=== PATIENT | female | born 1990 | race Asian ===

== ENCOUNTER 2020-04-06 21:55 | Observation (INO) | payer OTHER ==
[~2020-04-06] VITALS: Ht 154.9 cm; Wt 59.0 kg
[2020-04-06 22:00] VITALS: BP 108/61
[2020-04-06] MEDS ORDERED: PENICILLIN G POTASSIUM IV 5 MU in D5W MINI-BAG PLUS 100 ML IV STA (22:37)
[2020-04-06] MEDS ORDERED: MAGNESIUM *L&D* 4GM/100ML BAG (40MG/ML) IV ONE (22:45)
[2020-04-06] MEDS ORDERED: LACTATED RINGER'S 1000 ML IV ONE (22:45)
[2020-04-06] MEDS ORDERED: BETAMETHASONE SOLUSPAN 6MG/ML 5ML VIAL (J0702 PER 3MG) As Ordered ONE (22:55)
[2020-04-06] MEDS ORDERED: MAGNESIUM *L&D* 4GM/100ML BAG (40MG/ML) As Ordered ONE (22:56)
[2020-04-06 23:00] VITALS: BP 102/62
[2020-04-06 23:10] LABS: HEMATOCRIT 34.5 % (36.0-47.0); HEMOGLOBIN 11.9 g/dl (12.0-15.5); MEAN CORPUSCULAR HEMOGLOBIN 36.4 pg (27.0-33.0); MEAN CORPUSCULAR HGB CONC 34.5 g/dl (32.0-36.5); MEAN CORPUSCULAR VOLUME 105.5 fl (80.0-96.0); PLATELET COUNT, AUTOMATED 224 10^3/uL (150-450); RED BLOOD COUNT 3.27 10^6/uL (4.00-5.40); WHITE BLOOD COUNT 11.9 10^3/uL (4.0-10.0)
[2020-04-06] MEDS: BETAMETHASONE SOLUSPAN 6MG/ML 5ML VIAL (J0702 PER 3MG) IM SCH (23:10)
[2020-04-06] MEDS: MAG Sulf (OBGYN) 20GM/500ML 20,000 MG in IV 1 EA IV SCH (23:20)
[2020-04-06 23:21] LABS: APPEARANCE, URINE CLEAR (CLEAR); BACTERIA, URINE AUTO NEGATIVE (NEGATIVE); BILIRUBIN, URINE AUTO NEGATIVE (NEGATIVE); BLOOD, URINE BLOOD NEGATIVE (NEGATIVE); COLOR, URINE STRAW (YELLOW); GLUCOSE, URINE (UA) AUTO NEGATIVE (NEGATIVE); KETONE, URINE AUTO NEGATIVE (NEGATIVE); LEUKOCYTE ESTERASE, URINE AUTO 1+ (NEGATIVE); NITRITE, URINE AUTO NEGATIVE (NEGATIVE); PROTEIN, URINE AUTO NEGATIVE (NEGATIVE); RBC, URINE AUTO 0 /HPF (0-3); SPECIFIC GRAVITY URINE AUTO 1.004 (1.002-1.035); SQUAMOUS EPITHELIAL CELL UR AU 1 /HPF (0-6); UROBILINOGEN, URINE AUTO 0.2 mg/dL (0.0-2.0); WBC, URINE AUTO 5 /HPF (0-3)
[2020-04-06 23:30] VITALS: BP 111/70
[2020-04-07] VITALS (61 sets, daily range): BP systolic 68–122; BP diastolic 45–82
[2020-04-07] MEDS: ACETAMINOPHEN 500 MG TAB PO PRN (01:10)
[2020-04-07] MEDS: LR 1,000 ML IV SCH ×3 (03:04→13:30)
[2020-04-07] MEDS: PENICILLIN G POTASSIUM IV 2.5 MU in IV 1 EA IV SCH ×5 (03:43→19:25)
[2020-04-07 06:39] LABS: ALBUMIN 2.7 GM/DL (3.2-5.2); ALT/SGPT 13 U/L (12-78); BILIRUBIN,DIRECT < 0.1 MG/DL (0.0-0.2); BILIRUBIN,TOTAL 0.2 MG/DL (0.2-1.0); BLOOD UREA NITROGEN 6 MG/DL (7-18); CALCIUM LEVEL 7.6 MG/DL (8.5-10.1); CARBON DIOXIDE LEVEL 21 MEQ/L (21-32); CHLORIDE LEVEL 109 MEQ/L (98-107); CREATININE FOR GFR 0.53 MG/DL (0.55-1.30); GLOMERULAR FILTRATION RATE > 60.0 (>60); GLUCOSE, FASTING 150 MG/DL (70-100); LDH LACTATE DEHYDROGENASE 164 U/L (84-246); MAGNESIUM LEVEL 2.8 MG/DL (1.8-2.4); SODIUM LEVEL 136 MEQ/L (136-145); TOTAL PROTEIN 6.4 GM/DL (6.4-8.2); URIC ACID 3.4 MG/DL (2.6-6.0)
--- NOTE | 2020-04-07 07:43 | REPVR ---
PROCEDURE INFORMATION: Exam: US After First Trimester, Transabdominal Exam date and time: 04/07/2020 7:01 AM Age: 29 years old Clinical indication: Other: labor; ; Additional info: bpp cervical length weight placental evaluation abru TECHNIQUE: Imaging protocol: Real-time transabdominal obstetrical ultrasound of the maternal pelvis and a second or third trimester with image documentation. COMPARISON: No relevant prior studies available. FINDINGS: There is a single intrauterine gestation in cephalic presentation. No anatomic abnormality is demonstrated to involve the lateral ventricles, stomach, kidneys or urinary bladder. Anatomic detail was not further assessed. heart rate: 144 bpm Umbilical S/D ratio: 2.2 The following anatomic measurements were obtained: BPD 8.9 cm (36 weeks 1 day(s)) head circumference 31.6 cm (35 weeks 4 day(s)) abdomen circumference 30.6 cm (34 weeks 5 day(s)) femur length 6.3 cm (32 weeks 4 day(s)) head/abdomen circumference ratio 1.03 (range 0.96 - 1.11) Estimated weight 2390 g (56 percentile) Estimated gestational age based on this ultrasound 34 weeks 6 day(s) (Estimated date of confinement 05/13/20) The placenta is anterior, grade 1. There is no demonstrated placenta previa or abruption. The cervix is closed and measures 4.1 cm in length. The amniotic fluid index measures 17.5 cm. No abnormality is demonstrated in the maternal pelvis. IMPRESSION: 1. Single viable intrauterine gestation with estimated gestational age 34 weeks 6 days, based on measurements from this ultrasound. 2. Anterior, grade 1 placenta without demonstrated previa or abruption. 3. Cervix closed, 4.1 cm in length. PROCEDURE INFORMATION: Exam: US Biophysical Profile Without Non-Stress Test Exam date and time: 04/07/2020 7:01 AM Age: 29 years old Clinical indication: Other: labor; ; Additional info: bpp cervical length weight placental evaluation abru TECHNIQUE: Imaging protocol: US biophysical profile without non-stress testing. COMPARISON: No relevant prior studies available. FINDINGS: BIOPHYSICAL PROFILE: Breathin/2 Gross body movements: 2/2 tone: 2/2 Qualitative amniotic fluid: 2/2 Biophysical Profile Score: 8/8 IMPRESSION: Biophysical profile score is 8 out of 8. Electronically signed by: Jose Luis Sommers On 04/07/2020 07:42:53 AM
[2020-04-07 09:37] LABS: CREATININE,RANDOM URINE 25.7 MG/DL; TOTAL PROTEIN,RANDOM URINE 14.8 MG/DL (0.0-12.0)
[2020-04-07 18:35] LABS: HEMATOCRIT 30.6 % (36.0-47.0); HEMOGLOBIN 10.4 g/dl (12.0-15.5); MEAN CORPUSCULAR HEMOGLOBIN 36.5 pg (27.0-33.0); MEAN CORPUSCULAR VOLUME 107.4 fl (80.0-96.0); PLATELET COUNT, AUTOMATED 205 10^3/uL (150-450); RED BLOOD COUNT 2.85 10^6/uL (4.00-5.40); WHITE BLOOD COUNT 11.8 10^3/uL (4.0-10.0)
[2020-04-07 18:40] LABS: BLOOD UREA NITROGEN 8 MG/DL (7-18); CALCIUM LEVEL 7.6 MG/DL (8.5-10.1); CARBON DIOXIDE LEVEL 22 MEQ/L (21-32); CHLORIDE LEVEL 108 MEQ/L (98-107); CREATININE FOR GFR 0.43 MG/DL (0.55-1.30); GLOMERULAR FILTRATION RATE > 60.0 (>60); GLUCOSE, FASTING 117 MG/DL (70-100); MAGNESIUM LEVEL 4.1 MG/DL (1.8-2.4); POTASSIUM SERUM 3.8 MEQ/L (3.5-5.1); SODIUM LEVEL 137 MEQ/L (136-145)
[2020-04-07] MEDS: MAG Sulf (OBGYN) 20GM/500ML 20,000 MG in IV 1 EA IV SCH (23:22)
[2020-04-07] MEDS: BETAMETHASONE SOLUSPAN 6MG/ML 5ML VIAL (J0702 PER 3MG) IM SCH (23:23)
[2020-04-08] MEDS: ACETAMINOPHEN 500 MG TAB PO PRN (00:10)
--- NOTE | 2020-04-08 14:09 | HPE ---
DATE OF ADMISSION: 04/06/2020 28-year-old, 3, para 1, abortus 1, last menstrual period (LMP) 08/14/2019, estimated date of confinement (EDC) 05/20/2020 at 34 weeks of gestation with a history of contractions. She speaks Mandarin only and we are attempting to get a edge cutter. She has no vaginal loss and no vaginal bleeding. RISK FACTORS: She had a short interval . PAST HISTORY: 12/12/2018 at 40 and 3, spontaneous vaginal delivery 7 pounds, 8 ounces. LABORATORIES: O positive, HIV negative, hepatitis negative, RPR negative, Varicella immune, urine was negative, gonorrhea and chlamydia were negative, 1- hour glucose 123. Urine is 1.005, pH of 8. Blood pressure 108/61, respirations 18, pulse 100, temperature is 97.9. On examination, symphysis fundus height is 34 cm, vertex presenting, category 1 strip with occasional tightening which apparently the patient feels is moderate. Examination reveals a cervix which is posterior, 2 cm, almost 3 cm, soft, thick, -3 station, no vaginal bleeding or loss. Category 1 strip. Group B Streptococcus (GBS) culture was done. Our plan of management is to hydrate her, do magnesium sulfate for neurologic prophylaxis, penicillin for GBS prophylaxis, betamethasone for lung enhancement, and notify neonatology. At the present time, it is safe to proceed. Patient is not in good active labor. Anticipate shutting her down and hopefully discharge undelivered. Will reevaluate in several hours time. DEEDEED
--- NOTE | 2020-04-08 17:11 | IPN ---
DATE: 04/07/2020 HISTORY: This lady is a 28-year-old 3, para 1, who is at 34 weeks, came in with contractions, speaks no Czech, Mandrin only and no loss of fluid or vaginal discharge. Because of being 34 weeks and jay she was placed on mag sulfate for neuro prophylaxis, penicillin for GBS unknown status, betamethasone for lung maturity. Her initial blood pressure when she came in was 108/61. In viewing her blood pressures over the course of the nighttime her blood pressures ranged from 81/53 to 91/62 to 71/46. She functioned pretty well, was asymptomatic with her low blood pressures. She is diuresing well. Lowest output was 25 mL per hour and she is up to 125-200 mL per hour. She is in fluid balance. On re-evaluation of the patient she is having contractions that are irregular, erratic with a category 1 strip. She had 1 deceleration with a contraction, but it was variable. Her reflexes are +1. She has no edema, no clonus. She denies any right upper quadrant pain, visual disturbances. She is most concerned about the fact that she has a contraction that causes her pain. Cervical length on examination was 2 cm very posterior and the presenting part was high. Over the course of the night she had multiple boluses for her low blood pressure and this was ineffective. We did stop the mag sulfate as we thought maybe that was an issue, but she still had these low blood pressures. In reviewing her chart her blood pressures in clinic were 90s/60s and this may be just the physiologic normal for her. PLAN: Our plan of management is to review basic metabolic profile. We ordered a BPP with cervical length, rule out abruption placental. The working diagnosis is possibly atypical HELLP syndrome which we will be able to rule out with her profile. At the present time patient is stable, category 1 strip, few contractions, blood pressure at this time is 93/59, respirations 17, pulse 81 and she is afebrile. We spent 30 minutes in evaluation and examination. DESTIN
--- NOTE | 2020-04-08 17:13 | IPN ---
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 She has no vaginal bleeding or discharge. She was prophylactically put on mag sulfate, betamethasone, GBS prophylaxis coverage. She was still having intermittent contractions every 2, 5 to 7 minutes, irregular with a category 1 strip. During her stay on mag apparently her blood pressures seemed to have been on the low range level, she is asymptomatic. We were uncertain as to the etiology behind her low blood pressures so we had discontinued the mag sulfate for now, maintained the betamethasone and the antibiotics prophylactically. ASSESSMENT AND PLAN: In reviewing her chart from the office she had persistently low blood pressures and we elected to go with the fact that she has persistent low blood pressures; however, for completeness we did a preeclamptic profile which was negative, a complete metabolic profile which was negative. We did a protein:creatinine ratio which is still pending. In view we bolused her several times with fluid and seemed to be unresponsive to her blood pressures. In reviewing them here her latest blood pressure was 93/59, her lowest blood pressure was 71/48 again being asymptomatic. She is diuresing well. For completeness we did an ultrasound with biophysical profile, PRECIOUS, cervical length and appreciation for possible concealed abruption. The ultrasound was a biophysical profile of 8/8, the ST ratio was normal, vertex presenting. The estimated weight was 2390 grams at the 56th percentile for 34 weeks and 6 days. Placenta was anterior grade 1, no previa. Cervical length 4.1, no funneling. PRECIOUS was 17.5. Therefore we decided to start the mag sulfate for neuro prophylaxis, complete the 24 hour change after which it will be discontinued and if her cervix is unchanged and there is no further issues with blood pressure the plan is to discharge her after her second dose of betamethasone tomorrow morning at 06:00. Patient through translation expressed understanding. We had a 30 minute discussion. DESTIN
--- NOTE | 2020-04-23 12:39 | DSES ---
DATE OF ADMISSION: 04/06/2020 DATE OF DISCHARGE: 04/08/2020 BRIEF HISTORY: This lady is a 29-year-old 3 para 1 who is at 34 and 2 weeks of gestation; was admitted on 04/06/2020 with contractions. Speaks Mandarin only; requires translation. She had no vaginal bleeding, loss or discharge. A monitor strip showed that she was having some irregular contractions throughout and because she was 34 weeks of gestation, she required pre-term evaluation and treatment. Her risk factors are she had a short interval . She had her last baby 12/12/2018 at 40 and 3, spontaneous vaginal delivery, 7 pound 8 ounces. LABS ON ADMISSION: O-positive, HIV negative, Hep negative, R-DELORIS negative. Urine was negative. Gonorrhea and Chlamydia were negative. One-hour glucose was 123. On examination, she was about 2 cm, posterior, thick, high, -3 station. No vaginal bleeding or loss. She had a category 1 strip. Initially, when she came in, she was hydrated, neuroprophylaxis with magnesium sulfate, penicillin for GBS unknown status, betamethasone q. 24 for lung maturity and consultation with neonatology. Over her course of stay, she had some hypotensive episodes which were asymptomatic and she had low running blood pressures of 86/50, 97/62 and at one time she had an 80/45 and 76/49 but she was asymptomatic. She has been up to 104/62. In reviewing her records, she was always running low blood pressures, 90/40, 90/50, and so we felt that this was probably running her normal blood pressures; however, we investigated and evaluated her and on initial examination her hemoglobin was 11.9, hematocrit 34.5 and platelets were 224. A followup evaluation 24 hours later: Hemoglobin was 10.4, hematocrit 30.6 and platelets were 205. When reviewing her chemistry, her anion gap was 6, which is low; creatinine and BUN were normal, liver function was normal. We reevaluated 24 hours later and the numbers did not change. Her uric acid was always at 3.4. We did a urine which was clear, 1.004, pH 7, was negative. We did a protein/creatinine ratio which was 0.57. We did a biophysical profile which was 8/8. anatomy was normal. Estimated weight was 2390 grams which was the 56th percentile for weight at 34 weeks and 2 days. It was vertex presenting. Her cervix was 4.1 cm long, no funneling. Placenta/SD ratio was normal at 2.2. heart rate was 144 beats per minute; was vertex presenting. She completed her betamethasone, completed her neuroprophylaxis and her GBS prophylaxis at 0500 on 04/08/2020. She has no further contractions, no vaginal discharge or bleeding and patient was discharged to follow up in the office on 04/22/2020. Translation was provided by her , Mandarin speaking only. The patient expressed understanding of the plan of care and patient was discharged undelivered to follow up in the office. In summary, I have a 34-weeker with contractions; evaluation indicating that she was neurocomplete, GBS prophylaxis and steroid complete. Followup precautions, pelvic rest was ordered. Both the patient and certified nurse aide expressed understanding of the plan of care. She was discharged undelivered. [facility]
== END 2020-04-08 08:43 | disposition home or self-care (01) ==
LOC: M LDO 21:55 → M OBS 21:56 → M LDO 04-08 08:43
PROVIDERS: ADMIT Obstetrics & Gynecology; ATTEND Obstetrics & Gynecology
DX: O60.03 Preterm labor without delivery, third trimester (principal); Z3A.34 34 weeks gestation of pregnancy
CPT/HCPCS: 59025; 76811; 76819; 76820; 80048; 80053; 81001; 82247; 82248; 82565; 82570; 83615; 83735; 84156; 84450; 84460; 84550; 85027; 86780; 87081; 87086; 87186; 96365; 96366; 96367; 96372; 96374; 96375; J0702; J3475

== ENCOUNTER 2020-05-18 01:43 | Outpatient (CLI) | payer OTHER ==
[~2020-05-18] VITALS: Ht 152.4 cm; Wt 62.1 kg
[2020-05-18] MEDS ORDERED: VALT500T PO (03:16)
[2020-05-18] MEDS ORDERED: PRENTAB9 PO (03:16)
[2020-05-18 04:24] VITALS: BP 101/59
--- NOTE | 2020-05-18 05:06 | HPEPDOC ---
Obstetrical History & Physical General Date of Admission Primary Care Physician: Kendall Velasquez MD History of Present Illness seen in triage with complaints of contractions no vaginal loss no discharge contractions q 10 minutes apart. Chief Complaint: Contractions, term Information Provided By: Patient Age: 28 : 3 Term: 1 Abortions: 1 Livin Care Care: Good Care Dating Final EDC: May 20, 2020 Final EDC by: 1st trimester (US) LMP: Aug 14, 2019 Weeks + Days: 9 Estimated Date of Confinement: May 20, 2020 EGA at Admission: 39 (6 days) Antepartum Course Diagnos(e)s 39 .6 weeks early labor Past Medical History Past Obstetrical History : Past Obstetrical History: Multigravida Date of Delivery: December 12, 2018 Type of Delivery: Spontaneous Vaginal Del. 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 Past Medical History Surgical History: Denies/None Family History Significant Family History: No pertinent family hx Social History Marital Status: Family situation: Spouse/partner home Psychosocial History: No pertinent psych hx * Smoker: non-smoker Alcohol: Denies Drugs: denies Abuse Violence Screening Have you been hit/kicked/slapp: No Have you been sexually assault: No Imunizations Tdap status: current Influenza Status: current Allergies Coded Allergies: No Known Allergies (Unverified , 04/06/20) Medications Scheduled No.137/Iron/Folic Acd ( Vitamin Tablet) 1 Each Tablet, 1 TAB PO DAILY Valacyclovir HCl (Valtrex) 500 Mg Tablet, 1 TAB PO DAILY Physical Examination Physical Examination GENERAL: Alert and oriented times three. BREAST: . ABDOMEN: Gravid and non-tender to touch. FETUS: Is vertex (VTX) by sterile vaginal examination (SVE), fetus is vertex (VTX) by Maciel. HEART RATE: Regular rate and rhythm. LUNGS: Clear to auscultation (CTA). EXTREMITIES: No edema. Vital Signs/I&O Vital Signs Date Time Temp Pulse Resp B/P (MAP) Pulse Ox O2 Delivery O2 Flow Rate FiO2 05/18/20 04:24 97.9 05/18/20 04:24 75 101/59 (73) Pertinent Laboratoy Data Blood Type: O+ HIV: Negative Hepatitis B: Positive Rapid Plasma Reagin: Nonreactive Rubella: Immune Varicella: Immune Chlamydia/Gonorrhea: Negative Group B Streptococcus: Positive Cystic Fibrosis: Negative Anatomy Ultrasound Ultrasound Date: May 18, 2020 Placenta Location: Anterior Normal Anatomy: Yes Other Ultrasounds Information consented vertex cardiac activity noted limb motion observed spontaneous breathing PRECIOUS q 1 7.99CM Q2 3.93. Q3 4.43 CM Steroid Therapy Steroid Therapy: Yes Vaginal Examination Dilation: 3 cm Effacement: 50% Station: -3 Cervical Consistency: Firm Cervical Position: Posterior Presentation: Cephalic presentation Position: Vertex (occiput) Assessment Variability: Moderate Accelerations: Positive Decelerations: None Tocometer Contractions: Yes Frequency: irregular, greater than 9 min/apart Duration: less than 60 seconds Strength: palpated as mild Assessment/Plan Assessment 28 year-old G3 para P1 at 39 WEEKS 6 DAYS weeks by 9 -week ultrasound. 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 TRANSLATION MANDARIN Group B Streptococcus (GBS POSITIVE Labor and Delivery Counseling REVIEWED PROM LABOR BLEEDING WHEN TO CALL PROVIDER HAS APPOINTMENT KOREY DEL CID 05/20/2020 WILL BE BOOKED FOR IOL AT 41 WEEKS, THROUGH PACKING AND WRAPPING SUPERVISOR EXPRESSED UNDERSTANDING Kendall Velasquez MD May 18, 2020 05:01
== END 2020-05-18 04:35 | disposition home or self-care (01) ==
LOC: M LDO 01:43
PROVIDERS: ATTEND Obstetrics & Gynecology
DX: O26.893 Other specified pregnancy related conditions, third trimester (principal); Z3A.39 39 weeks gestation of pregnancy
CPT/HCPCS: 59025; G0378; G0463

== ENCOUNTER 2020-05-27 22:23 | Inpatient (IN) | payer OTHER ==
[~2020-05-27] VITALS: Ht 152.4 cm; Wt 62.5 kg
[~2020-05-27 22:23] MED LIST: PRENTAB9 PO; VALT500T PO
[2020-05-27 22:48] VITALS: BP 107/67
--- NOTE | 2020-05-27 23:59 | HPEPDOC ---
Obstetrical History & Physical General Date of Admission May 27, 2020 at 22:23 History of Present Illness 29yo at 41+0 weeks presents for IOL due to late term gestation. Patient is Mandarin-speaking only. Requests to use spouse as rail crew member. Denies any complaints. 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 (h/o chlamydia) Past Medical History Medical History HSV Surgical History: Denies/None Family History Significant Family History: No pertinent family hx Social History Marital Status: Family situation: Spouse/partner home Psychosocial History: No pertinent psych hx * Smoker: non-smoker Alcohol: Denies Drugs: denies Imunizations Tdap status: current (03/04/2020) Allergies Coded Allergies: No Known Allergies (Unverified , 04/06/20) Medications Scheduled No.137/Iron/Folic Acd ( Vitamin Tablet) 1 Each Tablet, 1 TAB PO DAILY Valacyclovir HCl (Valtrex) 500 Mg Tablet, 1 TAB PO DAILY Physical Examination Physical Examination GENERAL: Alert and oriented times three. ABDOMEN: Gravid and non-tender to touch. FETUS: Is vertex (VTX) by sterile vaginal examination (SVE), fetus is vertex (VTX) by Maciel. CARDS: well-perfused RESP: no exaggerated respiratory effort, no cough EXTREMITIES: No edema. : NEFG, no abnml vaginal discharge, no pooling, no VB. No herpatic lesions seen. SVE /-2 Laboratory Data 24H LABS Laboratory Tests 2 05/27/20 22:27: Serology Scanned Report Hepatitis B Testing Urine Culture: No Growth Pertinent Laboratoy Data Blood Type: O+ RBC Antibody Screen: Negative HIV: Negative Hepatitis B: Negative Rapid Plasma Reagin: Nonreactive Rubella: Immune Varicella: Immune Chlamydia/Gonorrhea: Negative Group B Streptococcus: Positive (04/07/2020) Quad Screen Test: Declined Cystic Fibrosis: Declined Glucose Tolerance Test: 123 Anatomy Ultrasound Ultrasound Date: Jan 10, 2020 Placenta Location: Posterior Normal Anatomy: Yes Placenta Previa: No Vaginal Examination Dilation: 4 cm Effacement: 90% Station: -2 Cervical Consistency: Soft Cervical Position: Middle Presentation: Cephalic presentation Assessment Heart Rate (FHR): 125 Variability: Moderate Accelerations: Positive Decelerations: None Tocometer Contractions: No Multi-drug resistant Organism: No history of MDRO Assessment/Plan Assessment 29yo at 41+0wks presenting for IOL for late term gestation. H/o HSV on valtrex, no lesions seen on exam. GBS positive. SVe 4-5/90/-2. EFW 3200g. Plan Admit and orient. Social Media Marketing Specialist and consent. Diet: clears Group B Streptococcus (GBS) positive - will treat with PCN. Labs and intravenous (IV) per unit protocol. Counseled on Pitocin and induction of labor (IOL). Lactated Ringers (LR): Bolus 500 mL, then at 125 mL/hr. Anticipate normal spontaneous delivery (). C-S as appropriate. YARITZA HATHAWAY DO May 27, 2020 23:59
[2020-05-28] VITALS (14 sets, daily range): BP systolic 75–105; BP diastolic 47–65
[2020-05-28 00:03] LABS: HEMATOCRIT 34.9 % (36.0-47.0); HEMOGLOBIN 11.6 g/dl (12.0-15.5); MEAN CORPUSCULAR HEMOGLOBIN 36.1 pg (27.0-33.0); MEAN CORPUSCULAR HGB CONC 33.2 g/dl (32.0-36.5); MEAN CORPUSCULAR VOLUME 108.7 fl (80.0-96.0); PLATELET COUNT, AUTOMATED 190 10^3/uL (150-450); RED BLOOD COUNT 3.21 10^6/uL (4.00-5.40); WHITE BLOOD COUNT 7.5 10^3/uL (4.0-10.0)
--- NOTE | 2020-05-28 07:59 | IPNPDOC ---
Obstetrical Progress Note Date of Service May 28, 2020 Subjective 29 yo at 41w1d admitted for IOL for postdates . She has been resting comfortably. She denies any current complaints at this time. She has supportive family at the bedside. She desires an epidural for pain control. She has received 2 doses of antibiotics for GBS. Objective Vital Signs Date Time Temp Pulse Resp B/P (MAP) Pulse Ox O2 Delivery O2 Flow Rate FiO2 05/28/20 06:01 97.8 81 84/53 (63) No lesions noted during cervical exam. Assessment Heart Rate (FHR): 130 Variability: Moderate Accelerations: Present Decelerations: None Heart Rate Tracing: Category I Tocometer Contractions: Yes Frequency: other (every 3-4 minutes) Sterile Vaginal Examination Dilation: 6 cm Effacement (%): 50% Station: -2 Postion/Presentation: Cephalic presentation Assessment and Plan Age: 29 : 2 Term: 1 Pre-term: 0 Abortions: 0 Livin EGA at Admission: 41 (+0) Weeks & Days 41w1d Status: Reassuring Group B Streptococcus: Positive Anticipate: Vaginal Delivery Additional Comments Plan for epidural placement and AROM once comfortable with epidural. SHAYLEE NULL CNM May 28, 2020 07:52
[2020-05-28] MEDS ORDERED: FENTANYL 2MCG/ML ROPIVACAINE 0.2% IN 0.9% NACL 100ML IVBAG As Ordered ONE (08:23)
[2020-05-28] MEDS ORDERED: NALOXONE INJ 0.4MG/1ML VIAL (J2310 PER 1MG) IV PRN ×3 (10:45→15:00)
[2020-05-28] MEDS ORDERED: REFRIGERATOR IV KEYS XX PRN (10:45)
[2020-05-28] MEDS ORDERED: EPIDURAL/PCA KEYS XX PRN (10:45)
[2020-05-28] MEDS ORDERED: ONDANSETRON 4MG/2ML VIAL IV PRN ×3 (10:45→15:00)
[2020-05-28] MEDS ORDERED: ePHEDrine SULFATE 25 MG/5 ML(5MG/ML) SYRINGE IV PRN (10:45)
[2020-05-28] MEDS ORDERED: FENTANYL/ROPIVACAINE/NACL BAG 100 ML EPIDURAL SCH (10:45)
[2020-05-28] MEDS ORDERED: diphenhydrAMINE 50MG/ML VIAL (J1200) IV PRN ×2 (10:45→15:00)
[2020-05-28] MEDS ORDERED: EPIDURAL COMMENT XX SCH (10:45)
[2020-05-28] MEDS ORDERED: ceFAZolin 2 GM/D5W 50 ML IV BAG (J0690 PER 500MG) As Ordered ONE (12:37)
[2020-05-28] MEDS ORDERED: BICITRA 30ML SOLN UDC As Ordered ONE (12:37)
[2020-05-28] MEDS ORDERED: MORPHINE PRES-FREE INJ 10 MG/10 ML VIAL (J2274) As Ordered ONE (12:56)
[2020-05-28] MEDS ORDERED: dexameTHASONE 4 MG/ML 1ML VIAL (J1100 PER 1MG) As Ordered ONE (12:56)
[2020-05-28] MEDS ORDERED: KETOROLAC 60MG 2ML VIAL As Ordered ONE (12:56)
[2020-05-28] MEDS ORDERED: PHENYLephrine HCL 500 MCG/5 ML (100MCG/ML) SYRINGE (J2370) As Ordered ONE (12:56)
[2020-05-28] MEDS ORDERED: OXYTOCIN INJ 10 UNITS/ML VIAL (J2590) As Ordered ONE (12:56)
[2020-05-28] MEDS ORDERED: ONDANSETRON 4MG/2ML VIAL As Ordered ONE (12:56)
[2020-05-28 13:00] LABS: CORD GAS ABE V -8.2; CORD GAS HCO3 V 21.1 MEQ/L; CORD GAS PCO2 V 58.1 mmHg; CORD GAS PH V 7.177 UNITS; CORD GAS PO2 V 20.5 mmHg; CORD GAS SBC V 16.7 MEQ/L; CORD GAS TCO2 V 22.8 MEQ/L
[2020-05-28 13:02] LABS: CORD GAS ABE A -8.5; CORD GAS HCO3 A 22.1 MEQ/L; CORD GAS O2 SAT A 39.7 %; CORD GAS PCO2 A 67.9 mmHg; CORD GAS PH A 7.13 UNITS; CORD GAS PO2 A 21.2 mmHg; CORD GAS SBC A 16.5 MEQ/L; CORD GAS TCO2 A 24.2 MEQ/L
[2020-05-28] MEDS ORDERED: ePHEDrine SULFATE 25 MG/5 ML(5MG/ML) SYRINGE As Ordered ONE (13:11)
[2020-05-28] MEDS ORDERED: LR 1,000 ML IV SCH ×2 (14:11→15:00)
[2020-05-28] MEDS ORDERED: DOCUSATE SODIUM 100 MG CAP PO PRN (14:15)
[2020-05-28] MEDS ORDERED: ANUSOL HC CREAM 30GM TOP PRN (14:15)
[2020-05-28] MEDS ORDERED: ACETAMINOPHEN 500 MG TAB PO PRN (14:15)
[2020-05-28] MEDS ORDERED: OXYTOCIN INJ 10 UNITS/ML VIAL (J2590) IV ONE (14:15)
[2020-05-28] MEDS ORDERED: MEASLES,MUMPS,RUBELLA VACCINE INJ (MMR-II) (90707) SC SCH (14:15)
[2020-05-28] MEDS ORDERED: ACETAMINOPHEN TAB 650MG DOSE (2X325MG) PO PRN (14:15)
[2020-05-28] MEDS ORDERED: RHOGAM 300 MCG (1500 IU) INJ (J2790) IM SCH (14:15)
[2020-05-28] MEDS ORDERED: METHYLERGONOVINE MALEATE 0.2 MG TAB PO PRN (14:15)
[2020-05-28] MEDS ORDERED: ACETAMINOPHEN 650 MG SUPP PR PRN (14:15)
[2020-05-28] MEDS ORDERED: OXYTOCIN DRIP 30 UNITS in IV 1 EA IV ONE (14:15)
[2020-05-28] MEDS ORDERED: MOM 30ML SUSPENSION UDC PO PRN (14:15)
--- NOTE | 2020-05-28 14:37 | REP ---
INDICATION: c/s stat no count. COMPARISON: None. TECHNIQUE: Two AP portable views of abdomen and pelvis performed. FINDINGS: A curvilinear radiodensity overlies the midline of the upper abdomen which may be related to a foreign body either in or on the patient. Air is seen scattered throughout the GI tract. Soft tissue density in the pelvis is compatible with enlarged post gravid uterus. IMPRESSION: A curvilinear radiodensity overlies the midline of the upper abdomen which may be related to a foreign body either in or on the patient. <Electronically signed by Juan Hanks > 05/28/20 [id number]
[2020-05-28] MEDS ORDERED: OXYTOCIN 30 UNITS IN 0.9% NaCl 500ML IV BAG (J2590) As Ordered ONE (14:39)
[2020-05-28] MEDS ORDERED: ePHEDrine SULFATE 25 MG/5 ML(5MG/ML) SYRINGE IV SCH (15:00)
[2020-05-28] MEDS ORDERED: NALBUPHINE HCL 10 MG/ML AMP (J2300) IV PRN ×2 (15:00)
[2020-05-28] MEDS ORDERED: METOCLOPRAMIDE INJ 10MG/2ML VIAL (J2765 PER 1) IV PRN (15:00)
[2020-05-28] MEDS ORDERED: fentaNYL 100 MCG/2 ML INJECTION (J3010) IV PRN (15:00)
[2020-05-28] MEDS ORDERED: KETOROLAC 30 MG/ML 1ML VIAL As Ordered ONE (15:19)
[2020-05-28] MEDS: KETOROLAC 30 MG/ML 1ML VIAL IV SCH ×2 (15:34→21:35)
--- NOTE | 2020-05-28 17:22 | REP ---
INDICATION: Foreign body stat US, epidural removed, need comparison. COMPARISON: 05/28/2020 at 2:11 p.m.. TECHNIQUE: AP supine portable view of abdomen and pelvis performed. FINDINGS: Scattered air seen throughout the GI tract in a nonspecific pattern. Enlarged post gravid uterus is seen in the pelvis. The previously noted curvilinear metallic density projecting over the upper abdomen is no longer present. This is consistent removal of an epidural catheter. IMPRESSION: No radiopaque foreign body identified. Previously noted curvilinear density overlying the upper abdomen represented an epidural catheter which has been removed. <Electronically signed by Juan Hanks > 05/28/20 1311
--- NOTE | 2020-05-28 19:39 | ROOPDOC ---
[facility] Report Of Operation Report of Operation DATE OF PROCEDURE: 05/28/20 PREPROCEDURE DIAGNOSES: bradycardia, maternal declined to push failed 1 pull vacuum POSTPROCEDURE DIAGNOSES: SAME AND POP ASYNCLITIC . VAGINAL EVALUATION FOR LACERATIONS PROCEDURE: PRIMARY CS VAGINAL EVALUATION FOR CERVICAL AND VAGINAL TEARS. SURGEON: AYESHA PURVIS DOOR TENDER: CHAKA JACOBSEN ANESTHESIA: EPIDURAL ESTIMATED BLOOD LOSS: Approximately 600 ML COMPLICATIONS: NONE REMARKS: STAT CS VAGINAL EVALUATION PROCEDURE NOTE: PRIMARY CS AND VAGINAL EVALUATIONS FOR LACERATIONS DESCRIPTION OF PROCEDURE: UNDER ADEQUATE ANESTHESIA STAT PREP AND TIME OUT PREPPED AND DRAPED IN SUPINE CONDITION SEQUENTIALS IN PLACE ANTIBIOTICS APPROPRIATE A PFANNENSTIEL INCISION MADE PASSING THROUGH LAYERS HEMOSTASIS SECURED PERITONEUM OPENED MOBIUS PLACED BLADDER WAS FULL AND PROTRUDING DESPITE ATTEMPTS TO REDUCE BLADDER A LOW TRANSVERSE INCISION TO UTERUS CLEAR LIQUOR DELIVERED ON POP POSITION AND ASYNCLITIC LIVE MALE INFANT 9/9 WEIGHT 3490 GRAMS ARTERIAL AND VENOUS PH DONE , BABY HANDED OFF TO NEONATOLOGY. PLACENTA MANUAL REMOVAL UTERUS SWEPT CLEAN UTERUS CONTRACTED DOWN UNDER PITOCIN . LOWER SEGMENT SEWN IN 2 LAYERS EXTRICATING SECOND LAYER . REVIEWED TIGHT UTERUS HEMOSTASIS SECURED EXAMINATION BACK UTERUS NO TARES UTERUS FIRM. MOBIUS REMOVED ABDOMEN CLOSE PERITONEUM THEN FASCIA THEN INTERRUPTED TO SUBCUTANEOUS THEN DEXON TO SKIN. MEPORE DRESSING APPLIED. PATIENT WAS THEN PLACED IN LITHOTOMY POSITION EVALUATION REVEALED VERY SWOLLEN LABIA, ANTERIOR POSTERIOR SANCHES VERY BRUISED AND SWOLLEN LATERAL SANCHES OCCLUDING VAGINAL OPENING EXAMINATION OF CERVIX INTACT REPLACED AHMADI CATHETER THEN DRAINING WELL . EXRAY CALLED PARTIBLE NO INSTRUMENTS IN PATIENT BUT DESCRIPTION OF CURVILINEAR RADIODENSITY IN MIDLINE SEEN , CALLED FOREIGN BODY IN PATIENT. ANESTHESIA RECALLED PULLED EPIDURAL CATHETER REDID EXRAY AND NOTHING SEEN IN PATIENT . INSTRUMENT T AND PAD COUNT CORRECT . PATIENT TAKEN TO RECOVERY. Kendall Velasquez MD May 28, 2020 19:38
[2020-05-28] MEDS: PIPERACILLIN/TAZOBACTAM SOD 2.25 GM in D5W MINI-BAG PLUS 50 ML IV SCH (21:03)
[2020-05-29] MEDS: PERCOCET 5MG/325MG TAB PO PRN ×5 (00:37→22:04)
[2020-05-29 01:53] VITALS: BP 98/54
[2020-05-29] MEDS: KETOROLAC 30 MG/ML 1ML VIAL IV SCH ×2 (03:34→08:41)
[2020-05-29 06:02] VITALS: BP 103/62
[2020-05-29 06:36] LABS: HEMATOCRIT 24.6 % (36.0-47.0); MEAN CORPUSCULAR HEMOGLOBIN 36.9 pg (27.0-33.0); MEAN CORPUSCULAR HGB CONC 33.7 g/dl (32.0-36.5); MEAN CORPUSCULAR VOLUME 109.3 fl (80.0-96.0); PLATELET COUNT, AUTOMATED 146 10^3/uL (150-450); RED BLOOD COUNT 2.25 10^6/uL (4.00-5.40); WHITE BLOOD COUNT 12.8 10^3/uL (4.0-10.0)
[2020-05-29 06:40] LABS: HEMOGLOBIN 8.3 g/dl (12.0-15.5)
[2020-05-29] MEDS: PRENATAL VITAMINS CHEWABLE TABLET PO SCH (08:41)
[2020-05-29] MEDS: PIPERACILLIN/TAZOBACTAM SOD 2.25 GM in D5W MINI-BAG PLUS 50 ML IV SCH ×2 (08:42→19:51)
[2020-05-29 10:00] VITALS: BP 90/54
[2020-05-29 14:00] VITALS: BP 95/54
--- NOTE | 2020-05-29 16:30 | IPN ---
DATE: 05/29/2020 This lady is a 1, now para 2 who was admitted for induction of labor at 41 and 1 weeks' gestation. She had a primary section and a vaginal examination for laceration after a failed one-pull vacuum and prolonged bradycardia. Delivered a live- male , 7 pounds 11 ounces, 3490 grams, scores of 9 and 9 at one and five minutes, respectively. Arterial pH 7.13, base excess -8.5, venous pH 7.17, base excess -8.2. On her first day, her hemoglobin on admission was 11.6, hematocrit 34.9, and platelets were 190. Her day #1 hemoglobin was 8.3, hematocrit 24.6, and platelets were 146, and she is asymptomatic. Her blood pressure this morning is 103/62, respirations are 18, pulse is 67, and temperature is 98.6. Through japanese interpreter we discussed phlebitis, cystitis, mastitis, endometritis, and cellulitis, diet, exercise, pain management, perineal, breast, and wound care. Presently she is recovering well. Uterus is 2 below. Lochia is moderate. Four-quadrant bowel sounds are noted. Her vulvar swelling has gone down considerably, which was a concern postoperatively. This occurred intraoperatively prior to delivery. Lochia being moderate. She has no edema. She is doing well with pain medications, and our plan of management is to remove the [place] this morning, allow her to shower, repeat her complete blood count (CBC) tomorrow morning, and planned discharge is pending her recovery. Baby presently in intensive care unit (NICU). Patient speaks no Montserratian, Mandarin only, and will require a supervisor typesetting for every issue. Presently, patient is doing well. DESTIN
[2020-05-29] MEDS ORDERED: IBUPROFEN 600MG TAB PO PRN (17:00)
[2020-05-29] MEDS: IBUPROFEN 800 MG TAB PO SCH (17:09)
[2020-05-29 18:00] VITALS: BP 100/58
[2020-05-29 22:19] VITALS: BP 98/56
[2020-05-30] MEDS: IBUPROFEN 800 MG TAB PO SCH ×3 (01:42→17:36)
[2020-05-30 01:49] VITALS: BP 92/50
[2020-05-30 05:25] VITALS: BP 98/55
[2020-05-30] MEDS: PERCOCET 5MG/325MG TAB PO PRN ×3 (06:17→14:13)
--- NOTE | 2020-05-30 07:32 | IPNPDOC ---
Progress Note Date of Service: May 30, 2020 Day#: 2 Progress Note SUBJECT: 29 yo 2, now para 2 who was admitted for induction of labor at 41 and 1 weeks' gestation. She had a primary section and a vaginal examination for laceration after a failed one-pull vacuum and prolonged bradycardia. Delivered a live- male infant, 7 pounds 11 ounces, 3490 grams , scores of 9 and 9 at one and five minutes, respectively. Arterial pH 7.13,base excess -8.5, venous pH 7.17, base excess -8.2. On her first day,her hemoglobin on admission was 11.6, hematocrit 34.9, and platelets were 190. Her day #1 hemoglobin was 8.3, hematocrit 24.6, and platelets were 146, and she reports feeling dizy/lighheadache when she gets up. Her blood pressure this morning is 98/55, respirations are 17, pulse is 75, and temperature is 98.4. doing well day # 2. She has been ambulating, voiding spontaneously without issue and tolerating regular diet. Breast feeding without issue. Reports lochia is minimal . Reports some cramping with . Denies any pain. Voiding and stooling without difficulty. OBJECTIVE: VITAL SIGNS: Within normal limits, afebrile as above Alert and oriented times three. Breath sounds clear to auscultation. Heart rate: Regular rate and rhythm, no murmurs, rubs or gallops. Abdomen: Fundus firm at U-2. Soft, NTTP. incision clear dry intact. dressing removed without concerns ASSESSMENT: 29 yo POD 2 status post PLTCD after failed vacuum. doing well on day 2. Vitals within normal limits, afebrile, hemodynamically stable with no evidence of infection. reports some lightheadedness and Dizziness when she first gets out of bed. will get another CBC this am. if normal patient can go home. PLAN: 1. Discharge to home today. 2. Tylenol and Motrin for pain. 3. Encourage breast feeding and ambulation. 4. nothing for contraception for now. counseled on available contraceptive o ptions--she will research Nexplanon and Mirena IUD and decide which one she wants. 5. Routine PP visit in 6 weeks in clinic and 2 weeks for Incision check. 6. Discussed return precautions at length. VS, I&O, 24H, Fishbone Vital Signs/I&O Vital Signs Date Time Temp Pulse Resp B/P (MAP) Pulse Ox O2 Delivery O2 Flow Rate FiO2 05/30/20 01:49 98.7 74 17 92/50 (64) 98 05/29/20 18:00 Room Air I&O- Last 24 Hours up to 6 AM 05/30/20 06:00 Output Total 400 ml Balance -400 ml Laboratory Data 24H LABS Laboratory Tests 2 05/29/20 06:25: Nucleated Red Blood Cells % (auto) 0.0 CBC/BMP Laboratory Tests 05/29/20 06:25 KIMBERLY NOLASCO MD May 30, 2020 05:08
[2020-05-30 07:55] LABS: HEMATOCRIT 25.9 % (36.0-47.0); HEMOGLOBIN 8.5 g/dl (12.0-15.5); MEAN CORPUSCULAR HGB CONC 32.8 g/dl (32.0-36.5); MEAN CORPUSCULAR VOLUME 109.7 fl (80.0-96.0); PLATELET COUNT, AUTOMATED 160 10^3/uL (150-450); RED BLOOD COUNT 2.36 10^6/uL (4.00-5.40)
[2020-05-30 08:38] VITALS: BP 98/55
[2020-05-30] MEDS: PRENATAL VITAMINS CHEWABLE TABLET PO SCH (09:11)
--- NOTE | 2020-05-30 12:28 | IPN ---
DATE: 05/30/2020 This lady is a 29-year-old 2, para 2, who was admitted for induction of labor at 41 and 1 weeks gestation. She had a primary stat section and had a vaginal examination post section because of extreme swelling of her labia and vaginal bleeding source unknown. She delivered a live- male infant, 7 pounds 4 ounces, 3490 grams, scores of 9 and 9 at one and five minutes, respectively. Arterial pH 7.13, base excess -8.5, venous pH 7.07, base excess - 8.2. On her second day, she is not mobilizing well. She just sits in bed. She is voiding well, passing gas. Incision is clean and dry. She has an extremely swollen labial area bilaterally, and also vaginal lateral mason are swollen. No active bleeding from there. Significantly enlarged hemorrhoids. Despite the use of ice diapers, it is slowly coming down, but it is not at a sufficient area that she can actually mobilize and go home. Her blood pressure today is 98/55, respirations are 15, pulse 75, temperature 98.4. Her admitting hemoglobin was 11.6, hematocrit 34.9, and platelets are 190. Her hemoglobin 8.5, hematocrit 25.9, and platelets 116. She is asymptomatic. Our plan of management is to continue perineal care as well as analgesics for pain and possibly once resolution of the vulvar/vaginal area is down, she can be discharged to followup at home. 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 Patient expressed understanding of plan of care. A 20-minute discussion. DESTIN
[2020-05-30 17:55] VITALS: BP 127/72
[2020-05-31] MEDS: IBUPROFEN 800 MG TAB PO SCH ×2 (00:57→08:51)
[2020-05-31] MEDS: PERCOCET 5MG/325MG TAB PO PRN ×2 (02:05→12:14)
[2020-05-31 06:00] VITALS: BP 100/62
[2020-05-31] MEDS: PRENATAL VITAMINS CHEWABLE TABLET PO SCH (08:51)
--- NOTE | 2020-05-31 09:46 | IPNPDOC ---
Progress Note Date of Service: May 31, 2020 Day#: 3 Progress Note SUBJECT: 29 yo 2, now para 2 who was admitted for induction of labor at 41 and 1 weeks' gestation. She had a primary section and a vaginal examination for laceration after a failed one-pull vacuum and prolonged bradycardia. Delivered a live- male infant, 7 pounds 11 ounces, 3490 grams, scores of 9 and 9 at one and five minutes, respectively. Arterial pH 7.13,base excess -8.5, venous pH 7.17, base excess -8.2. On her first day,her hemoglobin on admission was 11.6, hematocrit 34.9, and platelets were 190. Her day #1 hemoglobin was 8.3, hematocrit 24.6, and platelets were 146, On POD2 CBC was stable at 130<8.5/25.9>160. doing well day # 3. She has been ambulating, voiding spontaneously without issue and tolerating regular diet. Breast feeding without issue. Reports lochia is minimal . Voiding and without difficulty. normal vitals, afebrile. OBJECTIVE: VITAL SIGNS: Within normal limits, afebrile as above Alert and oriented times three. normal work of breathing Heart rate: Regular rate and rhythm, Abdomen: Fundus firm at U-2. Soft, NTTP. incision clear dry intact. dressing in place ASSESSMENT: 29 yo POD 3 status post PLTCD after failed vacuum. doing well. Vitals within normal limits, afebrile, hemodynamically stable with no evidence of infection. No SI/HI. Patient is ready to go home PLAN: 1. Discharge to home today. 2. Tylenol and Motrin and oxycodone PRN for pain. 3. Encourage breast feeding and ambulation. 4. nothing for contraception for now. counseled on available contraceptive options--she will research Nexplanon and Mirena IUD and decide which one she wants. 5. Routine PP visit in 6 weeks in clinic and 2 weeks for Incision check. 6. Discussed return precautions at length. VS, I&O, 24H, Fishbone Vital Signs/I&O Vital Signs Date Time Temp Pulse Resp B/P (MAP) Pulse Ox O2 Delivery O2 Flow Rate FiO2 05/31/20 08:52 16 05/31/20 06:00 97.8 70 100/62 (75) 05/30/20 17:55 98 05/30/20 08:38 Room Air I&O- Last 24 Hours up to 6 AM 05/31/20 06:00 Intake Total 200 ml Balance 200 ml KIMBERLY NOLASCO MD May 31, 2020 09:39
[2020-05-31] MEDS ORDERED: ACET1TAB55 PO (09:52)
[2020-05-31] MEDS ORDERED: DOCU100C16 PO (09:52)
[2020-05-31] MEDS ORDERED: IBUP80TA PO (09:52)
[2020-05-31] MEDS ORDERED: PERCOCET PO (09:52)
== END 2020-05-31 12:30 | disposition home or self-care (01) | DRG 773 ==
LOC: M LDI 22:23 → M OBS 05-28 15:45
PROC: 3E033VJ Introduction of Other Hormone into Peripheral Vein, Percutaneous Approach (ICD-10-PCS; 2020-05-27)
PROC: 10D00Z1 Extraction of Products of Conception, Low, Open Approach (ICD-10-PCS; principal; 2020-05-28 13:08)
DX: O48.0 Post-term pregnancy (principal); Z37.0 Single live birth; Z3A.41 41 weeks gestation of pregnancy; O76 Abnormality in fetal heart rate and rhythm complicating labor and delivery; O66.5 Attempted application of vacuum extractor and forceps